=== PATIENT | female | born 1995 | race Caucasian/White ===

== ENCOUNTER → 2016-10-01 | Outpatient (CLI) | payer BC ==
[2016-10-01 10:46] LABS: CH 30.7; HCT 33.2 % (34.0-46.0); HDW 3.24; HGB 10.8 gm/dL (11.4-16.0); MCH 30.4 pg (25.0-35.0); MCHC 32.4 g/dL (31.0-37.0); MCV 93.8 fL (80.0-100.0); Mean Platelet Volume 7.9; RBC 3.54 m/uL (3.80-5.40); RDW 12.5 % (11.5-15.5); WBC 8.1 k/uL (3.8-10.6)
== END | disposition home or self-care (01) ==
LOC: LABWHC1 08:59
PROVIDERS: ATTEND Obstetrics & Gynecology
DX: Z34.02 Encounter for supervision of normal first pregnancy, second trimester (principal); Z3A.00 Weeks of gestation of pregnancy not specified
CPT/HCPCS: 36415; 82950; 85027

== ENCOUNTER → 2016-12-11 | Outpatient (CLI) | payer BC ==
--- NOTE | 2016-12-11 12:26 | US ---
EXAMINATION TYPE: US OB anatomy transabd DATE OF EXAM: 12/11/2016 11:25 AM COMPARISON: us HISTORY: O36.63XO Large for dates 3rd Trimester TECHNIQUE: Transabdominal (TA) EXAM MEASUREMENTS: GESTATIONAL AGE / DATING Physician Established: (35 weeks/ 3 days) EDC: 01/12/17 Dates by LMP: (35 weeks/3 days) EDC: 01/12/17 Dates by First Scan: (35 weeks/3 days) EDC: 01/12/17 Dates by Current Scan for: (34 weeks/4 days) EDC: 01/18/17 SURVEY IUP: Single PLACENTA: Fundal PREVIA: No previa ABEBE: 9.2 cm CERVICAL LENGTH (transabdominal: norm > 3.0cm): 3.0 cm BIOMETRY PRESENTATION: Vertex LIE: Longitudinal BPD: 8.6 cm 34 weeks / 4 days HC: 31.2 cm 34 weeks / 5 days AC: 31.3 cm 35 weeks / 2 days FL: 6.8 cm 35 weeks / 0 days ESTIMATED WEIGHT IN GRAMS: 2579 grams ESTIMATED WEIGHT IN LBS/OZS: 5 lbs. 11 oz. WEIGHT PERCENTAGE BASED ON ESTABLISHED DATE: 37 % HC/AC: 0.99 FL/AC: 21.7 HEART RATE: 148 bpm RHYTHM: Normal ANATOMY SEEN (within normal limits): Cavus Septi Pellucidi Four Chamber Heart Outflow tracts: RVOT Stomach Nose / Lips Diaphragm Kidneys (bilateral) Bladder Three Vessel Cord Longitudinal Spine Transverse Spine ANATOMY NOT SEEN: Due to advanced age, crowding, calcification of bone Choroid Plexus (bilateral) * Lateral Vent (< 1 cm) * Cisterna Magna (< 1.1 cm) * Nuchal Fold (< 0.6 cm) * Cerebellum (varies with age) Midline Falx Cord Insert Arms (bilateral) Legs (bilateral) Situs LVOT IMPRESSION: Single viable intrauterine .
== END | disposition home or self-care (01) ==
LOC: RADUSWWP 10:47
PROVIDERS: ATTEND Obstetrics & Gynecology
DX: O36.63X0 Maternal care for excessive fetal growth, third trimester, not applicable or unspecified (principal); Z3A.34 34 weeks gestation of pregnancy
CPT/HCPCS: 76811

== ENCOUNTER 2017-01-07 05:47 | Inpatient (IN) | payer BC ==
--- NOTE | 2017-01-05 12:49 | P.HPOB ---
History of Present Illness H&P Date: 01/05/17 Chief Complaint: Patient is requesting elective induction. This patient is a pleasant 21-year-old 1 para 0 female estimated date of confinement 01/12/2017 estimated gestational age 39-2/7 weeks gestation who presents to labor and delivery for requested induction of labor due to discomfort. Patient's care has been uncomplicated. Review of Systems Constitutional: Denies chills, Denies fever Ears, nose, mouth and throat: Denies headache, Denies sore throat Cardiovascular: Denies chest pain, Denies shortness of breath Respiratory: Denies cough Gastrointestinal: Reports heartburn Genitourinary: Reports Menstruation: Reports amenorrhea Musculoskeletal: Denies myalgias Integumentary: Denies pruritus, Denies rash Neurological: Denies numbness, Denies weakness Past Medical History Past Medical History: No Reported History History of Any Multi-Drug Resistant Organisms: None Reported Past Surgical History: Tonsillectomy Past Anesthesia/Blood Transfusion Reactions: No Reported Reaction Past Psychological History: No Psychological Hx Reported Smoking Status: Never smoker Past Alcohol Use History: None Reported Past Drug Use History: None Reported Medications and Allergies Home Medications Medication Instructions Recorded Confirmed Type Pnv,Calcium 72/Iron/Folic Acid 1 tab PO DAILY 10/29/16 10/29/16 History [ Plus Tablet] Allergies Allergy/AdvReac Type Severity Reaction Status Date / Time No Known Allergies Allergy Verified 06/04/16 09:09 Exam - OBG Physical Exam Abdomen: bowel sounds normal, no diffuse tenderness, no bruit present, no guarding noted, no hepatomegaly, no splenomegaly, no mass Vulva: both: normal Vagina: normal moisture, no discharge Cervix: no lesion, no discharge Uterus: enlarged (Fundal height is consistent with a term . ) Results blood work shows she is B positive, rubella immune, RPR nonreactive, HIV nonreactive, hepatitis B negative, group B strep was negative, ultrasounds have been normal, Glucola was normal. Assessment and Plan (1) Third trimester Narrative/Plan: This is a pleasant 21-year-old 1 para 0 female 39-2/7 weeks gestation who is admitted to labor and delivery for requested induction of labor. Plan is induction of labor and anticipate vaginal delivery. Status: Acute (2) Elective induction of labor planned Status: Acute
[2017-01-07] MEDS ORDERED: METHYLERGONOVINE 0.2 MG/ML 1 ML AMP IM PRN (06:00)
[2017-01-07] MEDS ORDERED: CARBOPROST TROMETHAMINE 250 MCG/ML 1 ML AMP IM PRN (06:00)
[2017-01-07] MEDS ORDERED: LIDOCAINE 1% (PF) 10 MG/ML (30 ML SDV) SQ PRN (06:00)
[2017-01-07] MEDS ORDERED: OXYTOCIN 10 UNIT/ML 1 ML VIAL IM PRN (06:00)
[2017-01-07] MEDS ORDERED: TERBUTALINE 1 MG/ML VIAL SQ PRN (06:00)
[2017-01-07] MEDS ORDERED: OXYTOCIN 20 UNITS/1000 ML NS 1,000 ML IV SCH ×2 (06:00→20:05)
[2017-01-07 06:17] LABS: Basophils % (A) 0 %; CH 23.7; CHCM 30.5; Eosinophils # (A) 0.1 k/uL (0-0.7); Eosinophils % (A) 1 %; HCT 33.4 % (34.0-46.0); HDW 3.97; HGB 10.2 gm/dL (11.4-16.0); Hypochromasia Marked; Luc # (Auto) 0.24; Luc % (Auto) 3; Lymphocytes # (A) 2.5 k/uL (1.0-4.8); Lymphocytes % (A) 27 %; MCH 23.7 pg (25.0-35.0); MCHC 30.5 g/dL (31.0-37.0); MCV 77.8 fL (80.0-100.0); Mean Platelet Volume 9.6; Monocytes # (A) 0.5 k/uL (0-1.0); Monocytes % (A) 5 %; Neutrophils # (A) 5.7 k/uL (1.3-7.7); Neutrophils % (A) 64 %; Poikilocytosis Slight; RBC 4.29 m/uL (3.80-5.40); WBC (Perox) 9.45
[2017-01-07 06:19] VITALS: BMI 25.0
[2017-01-07] MEDS: LACTATED RINGERS 1,000 ML IV SCH ×2 (06:20→13:21)
[2017-01-07] MEDS ORDERED: BUPIVACAINE (PF) 0.25% 30 ML VIAL ONE (15:47)
[2017-01-07] MEDS ORDERED: fentaNYL (PF) 50 MCG/ML 5 ML AMP ONE (15:47)
[2017-01-07] MEDS ORDERED: SODIUM CHLORIDE 0.9% 100 ML BAG ONE (15:47)
--- NOTE | 2017-01-07 20:02 | P.PROBDLV ---
Vaginal Delivery Note - . Vaginal Delivery Note: Normal vaginal delivery viable female Apgars 9 and 9 delivery time is 1944 hrs. Please see dictated H&P for intimate details of this patient's admission. Brief summary this is a pleasant 21-year-old 1 para 0 female 39-2/7 weeks gestation admitted to labor and delivery for requested induction of labor. Patient is 2-3 cm dilated and has artificial rupture membranes for clear fluid. Patient's labor is induced per protocol. She progresses throughout the day and later in the afternoon does get an epidural for pain control and patient this time progresses quickly to complete and then pushes the head to the perineum. Posterior perineum was infiltrated with 1% lidocaine and a midline episiotomy is then made. We have controlled delivery of the 's head over the perineum. Mouth and nares are bulb suctioned. There is a nuchal cord which is loose and then reduced. With gentle downward traction we have delivery the anterior shoulder and the posterior shoulder and rest this infant's body. This is a vigorous viable female infant Apgars are 9 and 9 delivery time is 1944 hrs. After delivery of the the umbilical cords doubly clamped and cut it appears to be trivascular. The is late on the mother's abdomen. Placenta is then spontaneously delivered intact. Estimated blood loss is about 100 mL. Is a midline laceration which is repaired with 3-0 Vicryl in the usual fashion, this is a second-degree. Excellent reapproximation is noted. All counts are correct 3. There are no complications. and mother stable delivery room.
[2017-01-07] MEDS ORDERED: LANOLIN CREAM 5 GM TUBE TOPICAL PRN (20:05)
[2017-01-07] MEDS ORDERED: WITCH HAZEL 1 EACH MED..PAD TOPICAL PRN (20:05)
[2017-01-07] MEDS ORDERED: BENZOCAINE SPRAY 57GM TOPICAL PRN (20:05)
[2017-01-07] MEDS ORDERED: SIMETHICONE 80 MG CHEWABLE PO PRN (20:05)
[2017-01-07] MEDS ORDERED: HYDROCORTISONE 2.5% RECTAL CREAM 30 GM TUBE RECTAL PRN (20:05)
[2017-01-07] MEDS ORDERED: ZOLPIDEM 5 MG TAB PO PRN (20:05)
[2017-01-07] MEDS ORDERED: diphenhydrAMINE 25 MG CAP PO PRN (20:05)
[2017-01-07] MEDS ORDERED: ACETAMINOPHEN TAB 325 MG TAB PO PRN (20:05)
[2017-01-07] MEDS ORDERED: diphenhydrAMINE 50 MG/ML 1 ML VIAL IVP PRN (20:05)
[2017-01-07] MEDS ORDERED: Acetaminophen-Codeine 300-30mg TAB PO PRN (20:05)
[2017-01-07] MEDS ORDERED: BISACODYL 10 MG SUPP RECTAL PRN (20:05)
[2017-01-07] MEDS: IBUPROFEN 600 MG TAB PO PRN (20:40)
[2017-01-07] MEDS: SENNOSIDES-DOCUSATE SODIUM 1 EACH TAB PO SCH (20:46)
[2017-01-08] MEDS: IBUPROFEN 600 MG TAB PO PRN ×2 (04:14→19:57)
--- NOTE | 2017-01-08 05:58 | P.PNOBGVD ---
Subjective - Subjective Patient reports: Reports appetite normal, Reports voiding normally, Reports pain well controlled, Reports ambulating normally : doing well Objective - Latest Vital Signs Latest vital signs: Vital Signs Temp Pulse Resp BP Pulse Ox 01/08/17 04:00 98.8 F 73 16 115/67 01/08/17 00:00 98.5 F 90 16 126/86 01/07/17 21:48 98.3 F 96 16 118/65 01/07/17 21:18 94 16 129/58 01/07/17 20:48 91 16 117/75 01/07/17 20:33 98.3 F 88 16 126/78 01/07/17 20:18 96 16 128/77 01/07/17 20:03 108 H 16 106/61 01/07/17 19:48 126 H 16 135/72 01/07/17 05:59 96.8 F L 102 H 18 127/82 100 Intake and Output 01/07/17 01/07/17 01/08/17 14:59 22:59 06:59 Intake Total 540.1 3250 Output Total 350 Balance 190.1 3250 Intake: IV 3250 Lactated Ringers 1,000 ml 2000 @ 125 mls/hr IV .Q8H CAROLYN Rx#:[id number] Oxytocin 20 Units/1000 ml 1250 Ns 1,000 ml @ 1 MILLIUNIT/MIN 3 mls/hr IV .Q24H CAROLYN Rx#:[id number] Intake, IV Titration 540.1 Amount Oxytocin 20 Units/1000 ml 540.1 Ns 1,000 ml @ 1 MILLIUNIT/MIN 3 mls/hr IV .Q24H CAROLYN Rx#:[id number] Output: Urine 200 Straight 200 Estimated Blood Loss 150 Other: # Voids 2 1 - Exam Lungs: bilateral: normal Chest: Normal S1, Normal S2 Extremities: Present: normal Abdomen: Present: normal appearance, soft Uterus: Present: normal, firm - Labs Labs: Abnormal Lab Results - Last 24 Hours (Table) 01/07/17 Range/Units 06:00 Hgb 10.2 L (11.4-16.0) gm/dL Hct 33.4 L (34.0-46.0) % MCV 77.8 L (80.0-100.0) fL MCH 23.7 L (25.0-35.0) pg MCHC 30.5 L (31.0-37.0) g/dL Assessment and Plan (1) Third trimester Narrative/Plan: day #1. Patient is resting without complaints. Vital signs are stable she is afebrile. Uterus is firm nontender she's having normal lochia. My impression is a normal course. Plan is to continue routine care and discharge home tomorrow Current Visit: Yes Status: Acute Code(s): Z33.1 - STATE, INCIDENTAL SNOMED Code(s): 18475393 (2) Elective induction of labor planned Current Visit: Yes Status: Acute Code(s): WKF4895 - SNOMED Code(s): 965579634
--- NOTE | 2017-01-08 06:03 | P.DS ---
Providers Date of admission: 01/07/17 05:47 Expected date of discharge: 01/09/17 Attending physician: Trell Gomez Primary care physician: Stated None - Discharge Diagnosis(es) (1) Third trimester Current Visit: Yes Status: Acute (2) Elective induction of labor planned Current Visit: Yes Status: Acute Hospital Course: Please see dictated H&P for intimate details of this patient's admission. Brief summary is a pleasant 21-year-old 1 para 0 female 39-2/7 weeks gestation admitted to labor and delivery for requested induction of labor. Patient is admitted has uncomplicated induction of labor goes on to have a vaginal delivery viable female infant. Please see dictated delivery note. day 1 patient is doing well. 2 patient's felt be stable for discharge home follow up with me in 6 weeks. Procedures: Induction of labor and normal vaginal delivery. Patient Condition at Discharge: Good Plan - Discharge Summary New Discharge Prescriptions: New Acetaminophen-Codeine 300-30mg [Tylenol #3] 1 - 2 tab PO Q4H PRN #30 tablet PRN Reason: Pain Ibuprofen [Motrin] 600 mg PO Q6HR PRN #40 tab PRN Reason: Pain No Action Pnv,Calcium 72/Iron/Folic Acid [ Plus Tablet] 1 tab PO DAILY Discharge Medication List Pnv,Calcium 72/Iron/Folic Acid [ Plus Tablet] 1 tab PO DAILY 10/29/16 [ History] Acetaminophen-Codeine 300-30mg [Tylenol #3] 1 - 2 tab PO Q4H PRN #30 tablet 03/18 [Rx] Ibuprofen [Motrin] 600 mg PO Q6HR PRN #40 tab 01/07/17 [Rx] Follow up Appointment(s)/Referral(s): Trell Gomez MD [STAFF PHYSICIAN] - 02/18/17 10:15 am Patient Instructions/Handouts: Vaginal Delivery (DC) Activity/Diet/Wound Care/Special Instructions: No intercourse or anything per vagina for 6 weeks. Please call if any fever, chills, excessive vaginal bleeding, and/or abdominal pain. Discharge Disposition: HOME SELF-CARE
[2017-01-08] MEDS: SENNOSIDES-DOCUSATE SODIUM 1 EACH TAB PO SCH ×3 (07:56→23:59)
[2017-01-08] MEDS: Acetaminophen-Codeine 300-30mg TAB PO PRN ×2 (10:04→23:59)
--- NOTE | 2017-01-08 10:18 | P.PN ---
Progress Note - Text 0750 anesthesia. Patient received an epidural catheter for relief of labor pain on 01/07/2017. Initial attempt was made at L2-3 and resulted in a wet tap. Subsequent attempt at L3 4 with successful. Today the patient has no complaints and was instructed in conservative measures to avoid a post dural puncture headache. These included aggressive hydration especially in light of her breast-feeding, a recumbent position whenever possible, and when lying on her back the placement of a rolled towel beneath the original epidural site.
[2017-01-09] MEDS: SENNOSIDES-DOCUSATE SODIUM 1 EACH TAB PO SCH (08:33)
[2017-01-09] MEDS: Acetaminophen-Codeine 300-30mg TAB PO PRN (08:34)
[2017-01-09 09:20] VITALS: BP 129/82; PULSE 77; RESP 20; TEMP 98.2
--- NOTE | 2017-01-09 11:09 | P.DS ---
Providers Date of admission: 01/07/17 05:47 Expected date of discharge: 01/09/17 Attending physician: Trell Gomez Primary care physician: Stated None Hospital Course: Negative seen and evaluated day 2. She continues to have what she believes a spinal headache anesthesia yesterday had offered to do a blood patch but she refused. This morning her headache is back and she is planning on having a blood patch. Should blood patch relieve her headache we'll plan discharged home later today. Vital signs are otherwise stable and she is afebrile. She is involuting, voiding, and she is tolerating her diet. Otherwise she voices no complaints. Her heart is otherwise regular, lungs are clear, extremities are without pain. Abdomen soft uterus is firm and lochia is reported to be light. Assessment day 2. Plan await blood patch her anesthesia and likely discharged home later today. She is aware to follow up with Dr. Sales in 6 weeks and prescriptions for pain medication were provided. Plan - Discharge Summary New Discharge Prescriptions: New Acetaminophen-Codeine 300-30mg [Tylenol #3] 1 - 2 tab PO Q4H PRN #30 tablet PRN Reason: Pain Ibuprofen [Motrin] 600 mg PO Q6HR PRN #40 tab PRN Reason: Pain No Action Pnv,Calcium 72/Iron/Folic Acid [ Plus Tablet] 1 tab PO DAILY Discharge Medication List Pnv,Calcium 72/Iron/Folic Acid [ Plus Tablet] 1 tab PO DAILY 10/29/16 [ History] Acetaminophen-Codeine 300-30mg [Tylenol #3] 1 - 2 tab PO Q4H PRN #30 tablet 03/18 [Rx] Ibuprofen [Motrin] 600 mg PO Q6HR PRN #40 tab 01/07/17 [Rx] Follow up Appointment(s)/Referral(s): Trell Gomez MD [STAFF PHYSICIAN] - 02/18/17 10:15 am Patient Instructions/Handouts: Vaginal Delivery (DC) Activity/Diet/Wound Care/Special Instructions: No intercourse or anything per vagina for 6 weeks. Please call if any fever, chills, excessive vaginal bleeding, and/or abdominal pain. Discharge Disposition: HOME SELF-CARE
[2017-01-09] MEDS ORDERED: CAFFEINE-SODIUM BENZOATE 500 MG in SODIUM CHLORIDE 0.9% 1,000 ML IV ONE (11:45)
== END 2017-01-09 14:50 | disposition home or self-care (01) | DRG 775 ==
LOC: 4FBP 05:47
PROVIDERS: ADMIT Obstetrics & Gynecology; ATTEND Obstetrics & Gynecology
PROC: 3E033VJ Introduction of Other Hormone into Peripheral Vein, Percutaneous Approach (ICD-10-PCS; principal; 2017-01-07)
PROC: 10907ZC Drainage of Amniotic Fluid, Therapeutic from Products of Conception, Via Natural or Artificial Opening (ICD-10-PCS; principal; 2017-01-07)
PROC: 0KQM0ZZ Repair Perineum Muscle, Open Approach (ICD-10-PCS; principal; 2017-01-07)
PROC: 10E0XZZ Delivery of Products of Conception, External Approach (ICD-10-PCS; principal; 2017-01-07)
PROC: 0W8NXZZ Division of Female Perineum, External Approach (ICD-10-PCS; principal; 2017-01-07)
PROC: 3E0R3GC Introduction of Other Therapeutic Substance into Spinal Canal, Percutaneous Approach (ICD-10-PCS; 2017-01-08)
DX: O69.81X0 Labor and delivery complicated by cord around neck, without compression, not applicable or unspecified (principal); O70.1 Second degree perineal laceration during delivery; Z37.0 Single live birth; Z3A.39 39 weeks gestation of pregnancy; G97.1 Other reaction to spinal and lumbar puncture; Y84.4 Aspiration of fluid as the cause of abnormal reaction of the patient, or of later complication, without mention of misadventure at the time of the procedure
CPT/HCPCS: 85025; 88307

== ENCOUNTER 2018-09-04 11:07 | Inpatient (IN) | payer BC ==
[2018-09-04] MEDS ORDERED: OXYTOCIN 10 UNIT/ML 1 ML VIAL IM PRN (11:27)
[2018-09-04] MEDS ORDERED: METHYLERGONOVINE 0.2 MG/ML 1 ML AMP IM PRN (11:27)
[2018-09-04] MEDS ORDERED: CARBOPROST TROMETHAMINE 250 MCG/ML 1 ML AMP IM PRN (11:27)
[2018-09-04] MEDS ORDERED: TERBUTALINE 1 MG/ML VIAL SQ PRN (11:27)
[2018-09-04] MEDS ORDERED: LIDOCAINE 0.5% (PF) 5 MG/ML (50 ML SDV) SQ PRN (11:27)
[2018-09-04] MEDS ORDERED: LACTATED RINGERS 1,000 ML IV SCH (11:30)
[2018-09-04] MEDS ORDERED: OXYTOCIN 20 UNITS/1000 ML NS 1,000 ML IV SCH ×2 (11:30→14:45)
[2018-09-04 11:39] VITALS: BMI 24.6
--- NOTE | 2018-09-04 12:08 | P.HPOB ---
History of Present Illness H&P Date: 09/04/18 Chief Complaint: Contractions. This patient is a pleasant 23-year-old 2 para 1 female estimated date of confinement 09/10/2018 estimated gestational age 39 and one sevenths weeks who presents to labor and delivery with complaints of regular painful contractions. Patient is 5 simmers dilated thought to be in early labor. Patient also does have some mild blood pressure elevations without symptomatology at this time. care has been uncomplicated. Review of Systems Gastrointestinal: Reports heartburn Genitourinary: Reports Menstruation: Reports amenorrhea Past Medical History Past Medical History: No Reported History History of Any Multi-Drug Resistant Organisms: None Reported Past Surgical History: Tonsillectomy Past Anesthesia/Blood Transfusion Reactions: No Reported Reaction Past Psychological History: No Psychological Hx Reported Smoking Status: Never smoker Past Alcohol Use History: None Reported Past Drug Use History: None Reported - Past Family History Mother Family Medical History: Diabetes Mellitus Medications and Allergies Home Medications Medication Instructions Recorded Confirmed Type Pnv,Calcium 72/Iron/Folic Acid 1 tab PO DAILY 10/29/16 09/04/18 History [ Plus Tablet] Allergies Allergy/AdvReac Type Severity Reaction Status Date / Time No Known Allergies Allergy Verified 01/07/17 05:59 Exam Vital Signs Temp Pulse Resp BP 09/04/18 11:27 97.1 F L 112 H 15 136/90 Intake and Output 09/03/18 09/04/18 09/04/18 22:59 06:59 14:59 Other: Weight 67.132 kg - OBG Physical Exam Abdomen: bowel sounds normal, no diffuse tenderness, no bruit present, no guarding noted, no hepatomegaly, no splenomegaly, no mass Vulva: both: normal Vagina: normal moisture, no discharge Cervix: no lesion (Cervix is 5 cm dilated 80% effaced -1 station.), no discharge Uterus: enlarged (Fundal height is 38 cm) Results blood work shows she is B positive, rubella immune, RPR nonreactive, HIV nonreactive, hepatitis B negative, toxoplasmosis was negative, Glucola was 163 with a normal three-hour gtt., ultrasounds have been normal. Assessment and Plan Assessment: This is a pleasant 23-year-old 2 para 1 female 39 and one sevenths weeks gestation admitted to labor and delivery in active labor. Patient also some mild blood pressure elevations. Plan at this time is to admit for delivery , check preeclampsia laboratory, and anticipate vaginal delivery. (1) 39 weeks gestation of Current Visit: Yes Status: Acute Code(s): Z3A.39 - 39 WEEKS GESTATION OF SNOMED Code(s): 09528042 (2) Normal labor Current Visit: Yes Status: Acute Code(s): O80 - ENCOUNTER FOR FULL-TERM UNCOMPLICATED DELIVERY; Z37.9 - OUTCOME OF DELIVERY, UNSPECIFIED SNOMED Code(s ): 86319146 (3) Gestational hypertension Current Visit: Yes Status: Acute Code(s): O13.9 - GESTATIONAL HTN W/O SIGNIFICANT PROTEINURIA, UNSP TRIMESTER SNOMED Code(s): 443123338
[2018-09-04] MEDS: LACTATED RINGERS 1,000 ML IV SCH ×2 (12:16→14:25)
[2018-09-04 12:26] LABS: Anisocytosis Slight; Basophils % (A) 0 %; Eosinophils # (A) 0.1 k/uL (0-0.7); Eosinophils % (A) 1 %; HCT 34.7 % (34.0-46.0); HGB 10.6 gm/dL (11.4-16.0); Hypochromasia Marked; Lymphocytes # (A) 1.7 k/uL (1.0-4.8); Lymphocytes % (A) 21 %; MCH 21.3 pg (25.0-35.0); MCHC 30.4 g/dL (31.0-37.0); MCV 70.1 fL (80.0-100.0); Mean Platelet Volume 7.9; Microcytosis Marked; Monocytes # (A) 0.4 k/uL (0-1.0); Monocytes % (A) 4 %; Neutrophils # (A) 6.2 k/uL (1.3-7.7); Neutrophils % (A) 74 %; Platelet Count 185 k/uL (150-450); Poikilocytosis Moderate; RBC 4.96 m/uL (3.80-5.40); RDW 16.9 % (11.5-15.5); WBC 8.4 k/uL (3.8-10.6)
[2018-09-04 12:32] LABS: ALT 19 U/L (9-52); AST 9 U/L (14-36); Blood Urea Nitrogen 8 mg/dL (7-17); LDH 561 U/L (313-618); Uric Acid 5.5 mg/dL (3.7-7.4)
[2018-09-04 12:45] LABS: Appearance,Urine Clear (Clear); Bacteria,Urine Rare /hpf; Bilirubin,Urine Negative (Negative); Blood,Urine Negative (Negative); Color,Urine Yellow; Glucose,Urine (UA) Negative (Negative); Ketones,Urine 2+ (Negative); Leukocyte Esterase,Urine Negative (Negative); Mucus,Urine Moderate /hpf; Nitrite,Urine Negative (Negative); Protein,Urine 2+ (Negative); RBC,Urine 1 /hpf (0-5); Specific Gravity,Urine 1.023 (1.001-1.035); Squamous Epithelial Cell,Urine 4 /hpf (0-4); Urobilinogen,Urine <2.0 mg/dL (<2.0); WBC,Urine 1 /hpf (0-5)
[2018-09-04] MEDS ORDERED: diphenhydrAMINE 25 MG CAP PO PRN (14:37)
[2018-09-04] MEDS ORDERED: BISACODYL 10 MG SUPP RECTAL PRN (14:37)
[2018-09-04] MEDS ORDERED: WITCH HAZEL 1 EACH MED..PAD TOPICAL PRN (14:37)
[2018-09-04] MEDS ORDERED: ACETAMINOPHEN TAB 325 MG TAB PO PRN (14:37)
[2018-09-04] MEDS ORDERED: HYDROCORTISONE 2.5% RECTAL CREAM 30 GM TUBE RECTAL PRN (14:37)
[2018-09-04] MEDS ORDERED: SIMETHICONE 80 MG CHEWABLE PO PRN (14:37)
[2018-09-04] MEDS ORDERED: ZOLPIDEM 5 MG TAB PO PRN (14:37)
[2018-09-04] MEDS ORDERED: diphenhydrAMINE 50 MG/ML 1 ML VIAL IVP PRN (14:37)
[2018-09-04] MEDS ORDERED: LANOLIN CREAM 5 GM TUBE TOPICAL PRN (14:37)
[2018-09-04] MEDS ORDERED: BENZOCAINE/MENTHOL SPRAY 1 GM/SPRAY AEROSOL TOPICAL PRN (14:37)
--- NOTE | 2018-09-04 14:42 | P.PROBDLV ---
Vaginal Delivery Note - . Vaginal Delivery Note: Normal spontaneous vaginal delivery viable female infant Apgars 9 and 9 delivery time is 1408 hrs. Please see dictated H&P for intimate details of this patient's admission. Brief summary this is a pleasant 23-year-old 2 para 1 female 39 and one sevenths weeks gestation admitted to labor and delivery with complaint of contractions. Patient's found to be in early labor also has some mild blood pressure elevations. Preeclampsia labs are negative. Patient is artificial rupture membranes for clear fluid at 5 cm dilated. Patient's labor progresses quickly thereafter and she does get an epidural with some relief. Patient gets to complete pushes proximally 2 times pushes the head to the perineum. Posterior perineum is supported we have controlled delivery of the infant's head over the intact perineum. Mouth and nares are bulb suctioned. There is no evidence of nuchal cord. With gentle downward traction we then have deliver the anterior and posterior shoulder and rest this 's body. Is a vigorous viable female infant Apgars are 9 and 9 delivery time is 1408 hrs. is late on the mother's abdomen. Cord is allowed to finish pulsating then doubly clamped and cut. Placenta is then spontaneously delivered intact. Inspection of the perineum shows a quite deep laceration of the left upper labia. Is also a smaller laceration of the right labia. Using a 4-0 Vicryl suture and a fine- needle I reapproximate bilateral labia. Excellent reapproximation is noted. I also do put a couple stitches in a superficial laceration posterior vagina. Final counts are correct 3. There are no complications. and mother stable delivery room.
--- NOTE | 2018-09-04 14:43 | P.MSEPDOC ---
Presenting Problems - Arrival Data Date of Arrival on Unit: 09/04/18 Time of Arrival on Unit: 11:08 Mode of Transport: Ambulatory - Complaint OB-Reason for Admission/Chief Complaint: Possible Onset of Labor Medical History - Information : 2 Para: 1 Term: 1 : 0 Abortions: Spontaneous or Elective: 0 Number of Living Children: 1 - Gestational Age Gestational Age by ANANYA (wks/days): 39 Weeks and 1 Days Review of Systems - Review of Systems Constitutional: No problems Breast: No problems ENT: No problems Cardiovascular: No problems Respiratory: No problems Gastrointestinal: No problems Genitourinary: No problems Musculoskeletal: No problems Neurological: No problems Skin: No problems Vital Signs - Temperature Temperature: 97.1 F Temperature Source: Temporal Artery Scan - Pulse Right Brachial Pulse Rate: 112 Pulse Assessment Method: Automatic Cuff - Respirations Respiratory Rate: 15 Oxygen Delivery Method: Room Air - Blood Pressure Right Arm Sitting Blood Pressure: 136/90 Blood Pressure Mean: 105 Blood Pressure Source: Automatic Cuff Medical Screen Scoring (Pre) - Cervical Exam Dilation: 1-3 cm = 1 Membranes: Intact - Uterine Contractions Frequency: < 36 weeks = 6 Duration: > 40 seconds = 2 Intensity: N/A - Maternal Vital Signs Maternal Temperature: N/A Maternal Blood Pressure: Diastolic > 89 = 1 Signs of Preeclampsia: N/A Maternal Respirations: N/A - Maternal Trauma Maternal Trauma: N/A - Assessment Baseline FHR: 135 Heart Rate - NICHD Category: Category I (Normal) = 0 NST: Reactive Position: N/A Station: N/A - Total Score Total Score (Pre): 10 - Level of Risk Level of Risk: Medium (6-9) Physician Notification (Pre) - Physician Notified Physician Notified Date: 09/04/18 Physician Notified Time: 11:20 Spoke With: Dr Gomez New Order Received: Yes - Notification Comment Comment: admit for L/D and senf PI labs Disposition - Disposition OB Disposition: Admit I agree with the RN Medical Screening Exam: Yes Risk & Benefit of care provided described in d/c instruction: Yes Diagnosis: ENCOUNTER FOR FULL-TERM UNCOMPLICATED DELIVERY
[2018-09-04] MEDS: IBUPROFEN 600 MG TAB PO PRN ×2 (14:48→20:21)
[2018-09-04] MEDS ORDERED: ROPIVACAINE 100 MG, fentaNYL (PF) 200 MCG in SODIUM CHLORIDE 0.9% 76 ML EPIDURAL ONE (20:18)
[2018-09-04] MEDS: SENNOSIDES-DOCUSATE SODIUM 1 EACH TAB PO SCH (20:22)
--- NOTE | 2018-09-05 06:14 | P.PNOBGVD ---
Subjective - Subjective Patient reports: Reports appetite normal, Reports voiding normally, Reports pain well controlled, Reports ambulating normally : doing well Objective - Latest Vital Signs Latest vital signs: Vital Signs Temp Pulse Resp BP 09/05/18 04:00 98.3 F 99 18 138/80 09/04/18 23:20 98 F 99 16 150/72 09/04/18 23:08 109 H 18 09/04/18 20:44 98.0 F 109 H 18 142/79 09/04/18 16:30 96 16 135/86 09/04/18 16:00 84 15 137/88 09/04/18 15:27 98 16 134/85 09/04/18 15:12 97 F L 94 15 137/91 09/04/18 15:00 88 16 137/92 09/04/18 14:45 107 H 16 124/69 09/04/18 14:42 97.1 F L 112 H 15 136/90 09/04/18 14:30 104 H 15 122/71 09/04/18 11:27 97.1 F L 112 H 15 136/90 09/04/18 11:20 97.0 F L 112 H 15 136/90 Intake and Output 09/04/18 09/04/18 09/05/18 14:59 22:59 06:59 Other: Weight 67.132 kg - Exam Lungs: bilateral: normal Chest: Normal S1, Normal S2 Extremities: Present: normal Abdomen: Present: normal appearance, soft Uterus: Present: normal, firm - Labs Labs: Abnormal Lab Results - Last 24 Hours (Table) 09/04/18 09/04/18 09/04/18 Range/Units 11:15 11:15 11:50 Hgb (11.4-16.0) gm/dL MCV (80.0-100.0) fL MCH (25.0-35.0) pg MCHC (31.0-37.0) g/dL RDW (11.5-15.5) % AST 9 L (14-36) U/L Urine Protein 2+ H (Negative) Urine Ketones 2+ H (Negative) Urine Bacteria Rare H (None) /hpf Urine Mucus Moderate H (None) /hpf U Random Total Protein 50 H (<12) mg/dL 09/04/18 Range/Units 11:50 Hgb 10.6 L (11.4-16.0) gm/dL MCV 70.1 L (80.0-100.0) fL MCH 21.3 L (25.0-35.0) pg MCHC 30.4 L (31.0-37.0) g/dL RDW 16.9 H (11.5-15.5) % AST (14-36) U/L Urine Protein (Negative) Urine Ketones (Negative) Urine Bacteria (None) /hpf Urine Mucus (None) /hpf U Random Total Protein (<12) mg/dL Assessment and Plan Assessment: day #1. Patient is resting without complaints and wishes to go home. Vital signs are stable and she is afebrile. Uterus is firm nontender and she is having normal lochia. My impression this is a normal course. Plan is to continue routine care discharge home later today. (1) 39 weeks gestation of Current Visit: Yes Status: Acute Code(s): Z3A.39 - 39 WEEKS GESTATION OF SNOMED Code(s): 32503143 (2) Normal labor Current Visit: Yes Status: Acute Code(s): O80 - ENCOUNTER FOR FULL-TERM UNCOMPLICATED DELIVERY; Z37.9 - OUTCOME OF DELIVERY, UNSPECIFIED SNOMED Code(s ): 17379352 (3) Gestational hypertension Current Visit: Yes Status: Acute Code(s): O13.9 - GESTATIONAL HTN W/O SIGNIFICANT PROTEINURIA, UNSP TRIMESTER SNOMED Code(s): 148465141
--- NOTE | 2018-09-05 06:19 | P.DS ---
Providers Date of admission: 09/04/18 11:25 Expected date of discharge: 09/05/18 Attending physician: Trell Gomez Primary care physician: Stated None - Discharge Diagnosis(es) (1) 39 weeks gestation of Current Visit: Yes Status: Acute (2) Normal labor Current Visit: Yes Status: Acute (3) Gestational hypertension Current Visit: Yes Status: Acute Hospital Course: Please see dictated H&P for intimate details of this patient's admission. Brief summary this is a pleasant 23-year-old 2 para 1 female estimated gestational age 39 and one sevenths weeks who presented to labor and delivery with active labor. Patient also had some mild gestational hypertension with negative preeclampsia evaluation. Patient quickly went on to have a vaginal delivery viable female infant. Please see dictated delivery note. day #1 patient's felt to be stable for discharge home follow up with me in 6 weeks. Procedures: Normal spontaneous vaginal delivery. Patient Condition at Discharge: Good Plan - Discharge Summary New Discharge Prescriptions: New Ibuprofen [Motrin] 600 mg PO Q6HR PRN #40 tab PRN Reason: Mild Pain Or Fever >= 100.5 No Action Pnv,Calcium 72/Iron/Folic Acid [ Plus Tablet] 1 tab PO DAILY Discharge Medication List Pnv,Calcium 72/Iron/Folic Acid [ Plus Tablet] 1 tab PO DAILY 10/29/16 [ History] Ibuprofen [Motrin] 600 mg PO Q6HR PRN #40 tab 09/05/18 [Rx] Follow up Appointment(s)/Referral(s): Trell Gomez MD [STAFF PHYSICIAN] - 6 Weeks Patient Instructions/Handouts: Vaginal Delivery (DC) Activity/Diet/Wound Care/Special Instructions: No intercourse or anything per vagina for 6 weeks. Please call if any fever, chills, excessive vaginal bleeding, and/or abdominal pain. Discharge Disposition: HOME SELF-CARE
[2018-09-05] MEDS: IBUPROFEN 600 MG TAB PO PRN (08:23)
[2018-09-05] MEDS: SENNOSIDES-DOCUSATE SODIUM 1 EACH TAB PO SCH (08:23)
[2018-09-05 10:01] VITALS: RESP 16
[2018-09-05 16:18] VITALS: BP 133/73; PULSE 81; TEMP 98.5
== END 2018-09-05 17:00 | disposition home or self-care (01) | DRG 807 ==
LOC: FBPOP 11:07 → 4FBP 11:25
PROVIDERS: ADMIT Obstetrics & Gynecology; ATTEND Obstetrics & Gynecology
PROC: 10E0XZZ Delivery of Products of Conception, External Approach (ICD-10-PCS; principal; 2018-09-04)
PROC: 00HU33Z Insertion of Infusion Device into Spinal Canal, Percutaneous Approach (ICD-10-PCS; 2018-09-04)
PROC: 3E0R3BZ Introduction of Anesthetic Agent into Spinal Canal, Percutaneous Approach (ICD-10-PCS; 2018-09-04)
PROC: 0HQ9XZZ Repair Perineum Skin, External Approach (ICD-10-PCS; 2018-09-04)
DX: O13.4 Gestational [pregnancy-induced] hypertension without significant proteinuria, complicating childbirth (principal); Z37.0 Single live birth; O70.0 First degree perineal laceration during delivery; Z3A.39 39 weeks gestation of pregnancy; Z83.3 Family history of diabetes mellitus
CPT/HCPCS: 81001; 82565; 82570; 83615; 84156; 84450; 84460; 84520; 84550; 85025; 86850; 86900; 86901; 99213

== ENCOUNTER → 2024-09-25 | Outpatient (CLI) | payer BC ==
[2024-09-25 19:31] LABS: Alternaria alternata IgE <0.10 kU/L; Aspergillus fumagatus IgE <0.10 kU/L; Birch IgE <0.10 kU/L; Cat Epith & Dander IgE 0.18 kU/L; Cladosporian herbarum IgE <0.10 kU/L; Clam IgE <0.10 kU/L; Cockroach IgE <0.10 kU/L; Codfish IgE <0.10 kU/L; Dermato. farinae IgE <0.10 kU/L; Dog Dander IgE 0.38 kU/L; Egg White IgE <0.10 kU/L; Elm IgE <0.10 kU/L; Maple (Box Elder) IgE <0.10 kU/L; Oak IgE <0.10 kU/L; Peanut IgE <0.10 kU/L; Red Top (Bentgrass) IgE <0.10 kU/L; Scallop IgE <0.10 kU/L; Shrimp IgE <0.10 kU/L; Soybean IgE <0.10 kU/L; Walnut IgE (Food) <0.10 kU/L
[2024-09-26 13:48] LABS: Avocado Class CLASS 0; Banana IgE Class CLASS 0/1; Hazelnut IgE <0.10 kU/L (<0.10); Hazelnut IgE Class CLASS 0; Kiwi IgE <0.10 kU/L (<0.10); Kiwi IgE Class CLASS 0
== END | disposition home or self-care (01) ==
LOC: LABWHC1 09:43
PROVIDERS: ATTEND Nurse Practitioner Family
DX: J30.89 Other allergic rhinitis (principal)
CPT/HCPCS: 36415; 82785; 86003

== ENCOUNTER → 2024-10-03 | Outpatient (CLI) | payer BC ==
--- NOTE | 2024-10-03 14:42 | CT ---
EXAMINATION TYPE: CT sinus wo con DATE OF EXAM: 10/03/2024 COMPARISON: CLINICAL INDICATION: Female, 29 years old with history of R43.9 UNSPECIFIED DISTURBANCES OF SMELL AND TASTE; PHH, Unspecified disturbances of smell and taste. TECHNIQUE: CT scan of the sinuses is performed without contrast, axial images are obtained, coronal r eformatted images are also reviewed. CT DLP: 469.[address] CTDI: mGy Automated exposure control for dose reduction was used. FINDINGS: There is mild mucosal thickening in the maxillary sinuses and mild narrowing of the ostiomeatal compl exes secondary to mucosal inflammation. Remaining paranasal sinuses are well aerated. There are no air-fluid levels. The osseous structures are intact. The mastoid air cells and middle ear cavities are well. Intraorbital contents are normal and symmetric. IMPRESSION: Mild chronic sinusitis involving the maxillary sinuses and ostiomeatal complexes as described above. There is no evidence of acute sinusitis. [facility], , 10/03/2024 2:40 PM
== END | disposition home or self-care (01) ==
LOC: RADCTMAIN 13:55
PROVIDERS: ATTEND Otolaryngology
DX: J32.9 Chronic sinusitis, unspecified (principal)
CPT/HCPCS: 70486